=== PATIENT | male | born 1935 | race Asian ===

== ENCOUNTER 2016-12-08 18:06 | Emergency (ER) | payer OTHER ==
[~2016-12-08] VITALS: Ht 167.6 cm; Wt 78.0 kg
[2016-12-08] MEDS ORDERED: ERGO2000 PO (18:30)
[2016-12-08] MEDS ORDERED: ALEN70TA48 PO (18:30)
[2016-12-08] MEDS ORDERED: DOXY25SU3 PO (18:30)
[2016-12-08] MEDS ORDERED: TRIA10PO3 MC (18:30)
[2016-12-08] MEDS ORDERED: VITAD400 PO (18:30)
[2016-12-08] MEDS ORDERED: ERGO400T3 PO (18:30)
[2016-12-08] MEDS ORDERED: SARN225L TD (18:30)
[2016-12-08] MEDS ORDERED: CALC-1062 PO (18:30)
[2016-12-08] MEDS ORDERED: HYDR25TA PO (18:30)
[2016-12-08] MEDS ORDERED: ACET-2744 PO (18:30)
[2016-12-08 18:45] LABS: GLUCOSE,POINT OF CARE 109 MG/DL (70-110)
[2016-12-08 20:30] VITALS: BP 133/80
== END 2016-12-08 23:45 | disposition home or self-care (01) ==
LOC: EMS 18:08
DX: S32.019A Unspecified fracture of first lumbar vertebra, initial encounter for closed fracture (principal); Z88.0 Allergy status to penicillin; W19.XXXA Unspecified fall, initial encounter; Y93.89 Activity, other specified; Y92.89 Other specified places as the place of occurrence of the external cause; Y99.8 Other external cause status
CPT/HCPCS: 72131; 82962; 99284

== ENCOUNTER 2018-05-30 17:11 | Emergency (ER) | payer OTHER ==
[~2018-05-30] VITALS: Ht 165.1 cm; Wt 68.2 kg
[~2018-05-30 17:11] MED LIST: ACET-2744 PO; ALEN70TA48 PO; CALC-1062 PO; DOXY25SU3 PO; ERGO2000 PO; ERGO400T3 PO; HYDR25TA PO; SARN225L TD; TRIA10PO3 MC; VITAD400 PO
[2018-05-30 20:35] LABS: BASOPHILS % (AUTO) 0.2 % (0.0-2.0); EOSINOPHILS % (AUTO) 0.1 % (1.0-6.0); HEMATOCRIT 41.9 % (41-53); HEMOGLOBIN 14.4 g/dL (13.5-17.5); LYMPHOCYTES # (AUTO) 0.9 K/uL (1.0-4.8); LYMPHOCYTES % (AUTO) 7.6 % (22.0-44.0); MEAN CORPUSCULAR HEMOGLOBIN 32.7 pg (26.0-34.0); MEAN CORPUSCULAR HGB CONC 34.5 G/dL (31.0-37.0); MEAN CORPUSCULAR VOLUME 95 fL (80-100); MONOCYTES # (AUTO) 0.5 K/uL (0.1-1.0); MONOCYTES % (AUTO) 4.7 % (2.0-9.0); PLATELET COUNT (AUTO) 163 K/uL (150-450); RED BLOOD CELL COUNT(AUTO) 4.41 MIL/uL (4.50-5.90); RED CELL DISTRIBUTION WIDTH 12.5 % (11.5-14.5)
[2018-05-30 20:45] LABS: ANION GAP 8 mmol/L (8-16); CALCIUM, TOTAL 9.8 mg/dL (8.8-10.5); CARBON DIOXIDE 31 mmol/L (22-29); CHLORIDE 99 mmol/L (98-107); CREATININE 1.56 mg/dL (0.60-1.30); GLOMERULAR FILTR. RATE CALC 43 mL/min (>60); GLUCOSE,RANDOM 115 mg/dL (70-110); POTASSIUM 4.2 mmol/L (3.5-5.1); SODIUM SERUM 138 mmol/L (136-145); UREA NITROGEN, BLOOD 26 mg/dL (7-18)
[2018-05-30 20:52] LABS: NEUTROPHILS % (AUTO) 87.4 % (40.0-70.0)
[2018-05-30 20:56] LABS: B-TYPE NATRIURETIC PEPTIDE 11 pg/mL (0-100)
[2018-05-30 21:08] LABS: GLUCOSE,POINT OF CARE 102 MG/DL (70-110)
[2018-05-30 21:09] LABS: ALANINE AMINOTRANSFERASE 24 U/L (12-78); ALBUMIN 3.6 g/dL (3.4-5.0); ALKALINE PHOSPHATASE 44 U/L (46-116); ASPARTATE AMINOTRANSFERASE 37 U/L (15-37); BILIRUBIN,TOTAL 0.8 mg/dL (0.1-1.0); CREATINE KINASE MB 0.7 ng/mL (0-5); CREATINE KINASE, TOTAL 663 U/L (39-308); TOTAL PROTEIN, SERUM 7.3 g/dL (6.4-8.2)
[2018-05-30 23:42] LABS: APPEARANCE,URINE CLEAR (CLEAR); BILIRUBIN,URINE NEGATIVE (NEGATIVE); GLUCOSE, URINE (UA) NEGATIVE (NEGATIVE); KETONES,URINE 40 mg/dL (NEGATIVE); LEUKOCYTE ESTERASE ,URINE NEGATIVE (NEGATIVE); NITRATE,URINE NEGATIVE (NEGATIVE); OCCULT BLOOD,URINE MODERATE (NEGATIVE); PROTEIN,URINE NEGATIVE (NEGATIVE); UROBILINOGEN,URINE 0.2 mg/dL (<=1.0)
[2018-05-30 23:58] LABS: BACTERIA,URINE None Seen /HPF (None Seen); SQUAMOUS EPITHELIAL CELL,UR Few /LPF (None Seen); WBC,URINE 0-2 /HPF (0-5)
[2018-05-31] MEDS ORDERED: SODIUM CHLORIDE 0.9% 500 ML IV ONE (00:15)
[2018-05-31] MEDS ORDERED: TraMADol HCL 50 MG TABLET PO ONE (00:15)
[2018-05-31] MEDS ORDERED: MORPHINE SULFATE 4 MG/ML SYRINGE IVP ONE (01:45)
[2018-05-31] MEDS ORDERED: ONDANSETRON HCL 4 MG/2 ML VIAL IVP ONE (01:45)
[2018-05-31] MEDS ORDERED: MORPHINE SULFATE 2 MG/ML SYRINGE IVP ONE (01:45)
[2018-05-31 02:25] LABS: PROTHROMBIN TIME 10.2 SEC (9.4-11.6)
[2018-05-31 04:30] VITALS: BP 136/60
== END 2018-05-31 04:40 | disposition short-term general hospital (02) ==
LOC: EMS 17:13
DX: S72.002A Fracture of unspecified part of neck of left femur, initial encounter for closed fracture (principal); F03.90 Unspecified dementia, unspecified severity, without behavioral disturbance, psychotic disturbance, mood disturbance, and anxiety; Z88.0 Allergy status to penicillin; W19.XXXA Unspecified fall, initial encounter; Y93.89 Activity, other specified; Y92.89 Other specified places as the place of occurrence of the external cause; Y99.8 Other external cause status
CPT/HCPCS: 36415; 51702; 70450; 71045; 72125; 73503; 73552; 80053; 81001; 82550; 82553; 82962; 83880; 84484; 85025; 85610; 85730; 93005; 96374; 96375; 99285; J2270; J2405; J7040